=== PATIENT | male | born 1985 | race Two or more races ===

== ENCOUNTER 2022-06-27 15:17 | Emergency (ER) | payer SELFPAY ==
[~2022-06-27] VITALS: Ht 162.6 cm; Wt 71.9 kg
[2022-06-27 15:24] VITALS: BP 141/99
== END 2022-06-27 18:33 | disposition left against medical advice (07) ==
LOC: ER 15:17
DX: S00.86XA Insect bite (nonvenomous) of other part of head, initial encounter (principal); Z53.21 Procedure and treatment not carried out due to patient leaving prior to being seen by health care provider; W57.XXXA Bitten or stung by nonvenomous insect and other nonvenomous arthropods, initial encounter; Y93.89 Activity, other specified; Y92.89 Other specified places as the place of occurrence of the external cause; Y99.8 Other external cause status